=== PATIENT | male | born 1980 | race African-American/Black ===

== ENCOUNTER 2022-10-26 12:51 | Emergency (ER) | payer OTHER ==
[2022-10-26 13:21] VITALS: BP 141/92; PULSE 87; RESP 16; TEMP 98.2; BMI 24.2
[2022-10-26] MEDS ORDERED: KETOROLAC TROMETHAMINE 30 MG/1 ML VIAL IM ONE (13:33)
[2022-10-26] MEDS ORDERED: KETOROLAC TROMETHAMINE 30 MG/1 ML VIAL ONE (13:35)
== END 2022-10-26 17:43 | disposition home or self-care (01) ==
LOC: JERFT 12:51
PROC: 3E0233Z Introduction of Anti-inflammatory into Muscle, Percutaneous Approach (ICD-10-PCS; principal; 2022-10-26)
DX: M54.50 Low back pain, unspecified (principal); X50.0XXA Overexertion from strenuous movement or load, initial encounter
CPT/HCPCS: 72100-TC-FY; 72131-TC; 99284-25

== ENCOUNTER 2022-10-28 14:15 | Emergency (ER) | payer OTHER ==
[2022-10-28 14:25] VITALS: BP 162/89; PULSE 67; RESP 12; TEMP 98.5; BMI 19.8
== END 2022-10-28 15:52 | disposition home or self-care (01) ==
LOC: JER 14:15 → JERFT 14:15
DX: M54.50 Low back pain, unspecified (principal)
CPT/HCPCS: 99282-25